=== PATIENT | female | born 1970 | race Caucasian/White ===

== ENCOUNTER 2020-12-04 16:53 | Emergency (ER) | payer OTHER ==
[~2020-12-04] VITALS: Ht 167.6 cm; Wt 83.0 kg
== END 2020-12-04 20:30 | disposition home or self-care (01) ==
LOC: ER1 16:53
DX: Z23 Encounter for immunization (principal); U07.1 COVID-19; Z90.711 Acquired absence of uterus with remaining cervical stump
CPT/HCPCS: 99283; M0243